=== PATIENT | female | born 1960 | race African-American/Black ===

== ENCOUNTER 2022-12-10 04:21 | Inpatient (IN) | payer MEDICAID, OTHER ==
[~2022-12-10] VITALS: Ht 157.5 cm; Wt 72.1 kg
[2022-12-10] MEDS ORDERED: FAMOTIDINE 20MG/2ML VIAL IV ONE (04:45)
[2022-12-10] MEDS ORDERED: SODIUM CHLORIDE 0.9% 1,000 ML IV ONE (04:45)
[2022-12-10] MEDS ORDERED: ONDANSETRON HCL 4MG/2ML INJ IV ONE (04:45)
[2022-12-10 04:54] LABS: BASOPHILS % 0.6 % (0.0-2.0); EOSINOPHILS % 1.4 % (0.0-5.0); HEMOGLOBIN. 12.5 g/dL (12.0-16.0); LYMPHOCYTES % 29.9 % (20.0-50.0); MEAN CORPUSCULAR HEMOGLOBIN 28.2 pg (28.0-32.0); MEAN CORPUSCULAR HGB CONC 32.9 g/dL (31.0-37.0); MEAN CORPUSCULAR VOLUME 85.7 fL (81.0-99.0); MEAN PLATELET VOLUME 7.8 fl (7.4-10.4); NEUTROPHILS % 61.1 % (40.0-76.0); PLATELET 356 x1000/uL (130-400); RED BLOOD CELL COUNT 4.43 mill/uL (4.2-5.4); RED CELL DISTRIBUTION WIDTH 14.8 % (11.6-14.6); WHITE BLOOD COUNT 7.3 x1000/uL (4.5-11.0)
[2022-12-10 05:02] LABS: CALCIUM 8.6 mg/dL (8.5-10.1); CHLORIDE 113 mEq/L (98-107); INDEX HEMOLYSI 1 (1-3); INDEX ICTERIC 1 (1-4); INDEX LIPEMIC 1 (1-3); POTASSIUM 3.4 mEq/L (3.5-5.1); SODIUM 141 mEq/L (136-145)
[2022-12-10 05:11] LABS: ALANINE AMINOTRANSFERASE 27 IU/L (13-61); ALBUMIN 3.4 g/dL (3.4-5.0); ASPARTATE AMINOTRANSFERASE 9 IU/L (15-37); BILIRUBIN TOTAL 0.2 mg/dL (0.1-1.0); CARBON DIOXIDE 26 mEq/L (21-32); CREATININE 0.8 mg/dL (0.6-1.3); GLUCOSE 106 mg/dL (70-105); NT PRO B-TYPE NATRIURETIC PEP 32 pg/mL (5-125); PROTEIN TOTAL 7.4 g/dL (6.0-8.3); TROPONIN I HIGH SENSITIVITY 7 ng/L (<54); UREA NITROGEN BLOOD 9 mg/dL (7-21)
[2022-12-10] MEDS ORDERED: HYDRALAZINE 20MG/ML VIAL IV NR (09:15)
[2022-12-10] MEDS ORDERED: CLONIDINE 0.1MG TABLET PO PRN (11:15)
[2022-12-10] MEDS ORDERED: POTASSIUM CHLORIDE 20MEQ TABLET SR PO NR (11:15)
[2022-12-10] MEDS ORDERED: ONDANSETRON HCL 4MG/2ML INJ IV PRN (11:15)
[2022-12-10] MEDS: AMLODIPINE 5MG TABLET PO SCH (11:21)
[2022-12-10 15:30] VITALS: BP 167/65; PULSE 74; RESP 20; TEMP 97.9
[2022-12-10 15:49] VITALS: BP 167/65; PULSE 74; RESP 20; TEMP 97.9
[2022-12-10 16:05] VITALS: BP 167/65; PULSE 73; RESP 20; TEMP 97.9
[2022-12-10] MEDS: ACETAMINOPHEN 325MG TABLET PO PRN (16:55)
[2022-12-10 18:51] LABS: *AMPHETAMINES SCREEN URINE NEGATIVE (NEGATIVE); *BARBITURATES SCREEN URINE NEGATIVE (NEGATIVE); *BENZODIAZEPINES SCREEN URINE NEGATIVE (NEGATIVE); *COCAINE SCREEN URINE NEGATIVE (NEGATIVE); CANNABINOID URINE SCREEN NEGATIVE (NEGATIVE); ECSTASY MDMA SCREEN URINE NEGATIVE (NEGATIVE); OPIATES URINE SCREEN NEGATIVE (NEGATIVE); PHENCYCLIDINE URINE SCREEN NEGATIVE (NEGATIVE)
[2022-12-10 20:00] VITALS: BP 148/70; PULSE 67; RESP 20; TEMP 98.4
[2022-12-10] MEDS: HYDRALAZINE HCL 25MG TABLET PO SCH (20:32)
[2022-12-10 20:57] LABS: TROPONIN I HIGH SENSITIVITY 9 ng/L (<54)
[2022-12-11] VITALS: BP 137/67; PULSE 73; RESP 20; TEMP 97.9
[2022-12-11] MEDS: ACETAMINOPHEN 325MG TABLET PO PRN ×2 (01:27→12:30)
[2022-12-11 04:00] VITALS: BP 136/85; PULSE 70; RESP 20; TEMP 97.9
[2022-12-11 08:00] VITALS: BP 144/80; PULSE 72; RESP 18; TEMP 97.8
[2022-12-11] MEDS: HYDRALAZINE HCL 25MG TABLET PO SCH (08:16)
[2022-12-11] MEDS: AMLODIPINE 5MG TABLET PO SCH (08:16)
[2022-12-11] MEDS ORDERED: METOPROLOL TARTRATE 50MG TABLET PO NR (09:30)
[2022-12-11] MEDS ORDERED: NITROGLYCERIN SPRAY/4.9GM CAN TL ONE (11:30)
[2022-12-11 12:00] VITALS: BP 127/85; PULSE 92; RESP 20; TEMP 97.9
[2022-12-11] MEDS ORDERED: IOHEXOL-350 100 ML BOTTLE ONE (12:12)
[2022-12-11] MEDS ORDERED: HYDR-4135 MT (12:31)
[2022-12-11] MEDS ORDERED: HYDR-4134 PO ×2 (12:31)
[2022-12-11] MEDS ORDERED: AMLO10TA80 MT (12:31)
[2022-12-11] MEDS ORDERED: AMLO5TAB88 PO ×2 (12:31)
[2022-12-11 16:00] VITALS: BP 149/75; PULSE 54; RESP 18; TEMP 98
[2022-12-11 20:00] VITALS: BP 149/96; PULSE 59; RESP 20; TEMP 98.3
[2022-12-11] MEDS: HYDRALAZINE HCL 50MG TABLET PO SCH (20:17)
[2022-12-12] VITALS (9 sets, daily range): BP systolic 110–149; BP diastolic 63–85; PULSE 48–72; RESP 13–20; TEMP 97.6–98.6
[2022-12-12] MEDS: AMLODIPINE 10MG TABLET PO SCH (08:23)
[2022-12-12] MEDS: HYDRALAZINE HCL 50MG TABLET PO SCH ×2 (08:23→21:03)
[2022-12-12] MEDS ORDERED: IODIXANOL 320MG/ML 100 ML BOTTLE IV ONE (12:02)
[2022-12-12] MEDS ORDERED: FENTANYL CITRATE/PF 50MCG/ML 2ML VIAL ONE (12:13)
[2022-12-12] MEDS ORDERED: VERAPAMIL HCL 2.5 MG/1 ML 2ML VIAL IV ONE (12:13)
[2022-12-12] MEDS ORDERED: LIDOCAINE HCL/PF 2% 20MG/ML 5 ML/VIAL ONE (12:14)
[2022-12-12] MEDS ORDERED: MIDAZOLAM HCL 2 MG/2 ML VIAL ONE (12:14)
[2022-12-12] MEDS ORDERED: LIDOCAINE HCL 1% 10 MG/ML 10ML VIAL ONE ×2 (12:15→12:18)
[2022-12-12] MEDS ORDERED: HEPARIN 1000 UNITS/ML 10ML ONE (12:15)
[2022-12-12] MEDS ORDERED: DIPHENHYDRAMINE 50MG/ML VIAL ONE (12:16)
[2022-12-12] MEDS ORDERED: HYDRALAZINE 20MG/ML VIAL ONE (13:30)
[2022-12-12] MEDS ORDERED: CLOPIDOGREL 75MG TABLET ONE (13:32)
[2022-12-12] MEDS ORDERED: ASPIRIN 325MG TABLET ONE (13:32)
[2022-12-12] MEDS ORDERED: ATROPINE SULFATE 1MG/10ML SYR IV PRN (14:00)
[2022-12-12] MEDS ORDERED: ACETAMINOPHEN 325MG TABLET PO PRN (14:00)
[2022-12-12] MEDS ORDERED: SODIUM CHLORIDE 0.45% 1,000 ML IV ONE (15:30)
[2022-12-13] VITALS: BP 159/74; PULSE 61; RESP 20; TEMP 97.8
[2022-12-13 04:00] VITALS: PULSE 57; RESP 16
[2022-12-13 07:22] LABS: BASOPHILS % 0.5 % (0.0-2.0); EOSINOPHILS % 1.3 % (0.0-5.0); HEMATOCRIT. 41.1 % (36.0-48.0); HEMOGLOBIN. 13.6 g/dL (12.0-16.0); LYMPHOCYTES % 34.9 % (20.0-50.0); MEAN CORPUSCULAR HEMOGLOBIN 28.3 pg (28.0-32.0); MEAN CORPUSCULAR VOLUME 85.8 fL (81.0-99.0); MEAN PLATELET VOLUME 8.4 fl (7.4-10.4); MONOCYTES % 9.8 % (2.0-8.0); NEUTROPHILS % 53.5 % (40.0-76.0); PLATELET 361 x1000/uL (130-400); RED BLOOD CELL COUNT 4.78 mill/uL (4.2-5.4); RED CELL DISTRIBUTION WIDTH 14.8 % (11.6-14.6); WHITE BLOOD COUNT 5.5 x1000/uL (4.5-11.0)
[2022-12-13 08:00] VITALS: BP 135/80; PULSE 97; RESP 14; TEMP 99
[2022-12-13 08:16] LABS: CALCIUM 8.4 mg/dL (8.5-10.1); CARBON DIOXIDE 22 mEq/L (21-32); CHLORIDE 113 mEq/L (98-107); INDEX HEMOLYSI 1 (1-3); INDEX ICTERIC 1 (1-4); INDEX LIPEMIC 1 (1-3); POTASSIUM 4.2 mEq/L (3.5-5.1); SODIUM 137 mEq/L (136-145)
[2022-12-13 08:21] LABS: CREATININE 0.7 mg/dL (0.6-1.3); GLUCOSE 99 mg/dL (70-105); UREA NITROGEN BLOOD 11 mg/dL (7-21)
[2022-12-13] MEDS: AMLODIPINE 10MG TABLET PO SCH (08:31)
[2022-12-13] MEDS: HYDRALAZINE HCL 50MG TABLET PO SCH (08:31)
[2022-12-13] MEDS ORDERED: CLOPIDOGREL 75MG TABLET PO SCH (09:00)
[2022-12-13] MEDS ORDERED: ASPIRIN 81MG TABLET PO SCH (09:00)
[2022-12-13] MEDS ORDERED: ASPI-1160 PO (09:53)
[2022-12-13] MEDS ORDERED: CLOP-31 PO (09:53)
[2022-12-13 11:33] VITALS: BP 126/76; PULSE 97; TEMP 99; O2SAT 99
== END 2022-12-13 12:30 | disposition home or self-care (01) | DRG 175 ==
LOC: ER 04:21 → 7WST 06:15 → 3WST 12-12 14:30
PROVIDERS: ADMIT Internal Medicine; ATTEND Internal Medicine
PROC: 027035Z Dilation of Coronary Artery, One Artery with Two Drug-eluting Intraluminal Devices, Percutaneous Approach (ICD-10-PCS; principal; 2022-12-12)
PROC: 4A023N7 Measurement of Cardiac Sampling and Pressure, Left Heart, Percutaneous Approach (ICD-10-PCS; 2022-12-12)
PROC: B211YZZ Fluoroscopy of Multiple Coronary Arteries using Other Contrast (ICD-10-PCS; 2022-12-12)
PROC: 4A033BC Measurement of Arterial Pressure, Coronary, Percutaneous Approach (ICD-10-PCS; 2022-12-12)
DX: I25.110 Atherosclerotic heart disease of native coronary artery with unstable angina pectoris (principal); E78.5 Hyperlipidemia, unspecified; I16.0 Hypertensive urgency; E87.6 Hypokalemia; Z20.822 Contact with and (suspected) exposure to COVID-19; I10 Essential (primary) hypertension; F17.210 Nicotine dependence, cigarettes, uncomplicated; Z82.49 Family history of ischemic heart disease and other diseases of the circulatory system
CPT/HCPCS: 36415; 71045; 75571; 80048; 80053; 80305; 83880; 84484; 85025; 85347; 87426; 93005; 93306; 93880; 99285; J0360; J1200; J1644; J2250; J2405; J3010; J3490; J7030; Q9967